=== PATIENT | female | born 1995 | race Caucasian/White ===

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

== ENCOUNTER 2017-10-06 13:04 | Emergency (ER) | payer OTHER ==
[~2017-10-06] VITALS: Ht 167.6 cm; Wt 65.5 kg
[~2017-10-06 13:04] MED LIST changes: +CIPRO500 MG PO; +PYRIDIUM200 MG PO
[2017-10-06 13:52] LABS: INTERNAL CONTROL VALID? YES; MONOSPOT (MONONUCLEOSIS SEROL) POSITIVE (NEGATIVE)
[2017-10-06 14:42] VITALS: BP 110/72
== END 2017-10-06 14:48 | disposition home or self-care (01) ==
LOC: EME 13:04
PROVIDERS: Physician Assistant
DX: B27.90 Infectious mononucleosis, unspecified without complication (principal); F17.200 Nicotine dependence, unspecified, uncomplicated
CPT/HCPCS: 86308; 87651 90; 99281; 99284